=== PATIENT | female | born 1990 | race Caucasian/White ===

== ENCOUNTER 2022-05-05 15:52 | Emergency (ER) | payer OTHER ==
[~2022-05-05] VITALS: Ht 167.6 cm; Wt 98.6 kg
[2022-05-05] MEDS ORDERED: IBUPROFEN 800 MG TAB PO ONE (18:30)
[2022-05-05 20:00] VITALS: BP 121/63
== END 2022-05-05 20:01 | disposition home or self-care (01) ==
LOC: M ED 15:52
DX: S16.1XXA Strain of muscle, fascia and tendon at neck level, initial encounter (principal); S29.012A Strain of muscle and tendon of back wall of thorax, initial encounter; V49.59XA Passenger injured in collision with other motor vehicles in traffic accident, initial encounter; Y92.410 Unspecified street and highway as the place of occurrence of the external cause; E66.9 Obesity, unspecified